=== PATIENT | female | born 1960 | race Hispanic/Latino ===

== ENCOUNTER → 2017-11-24 | Outpatient (CLI) | payer MEDICARE | END | disposition home or self-care (01) | LOC: RAH 07:53 | PROVIDERS: ATTEND Internal Medicine Cardiovascular Disease | DX: K80.20 Calculus of gallbladder without cholecystitis without obstruction (principal); R74.8 Abnormal levels of other serum enzymes | CPT/HCPCS: 76705 ==

== ENCOUNTER → 2018-07-07 | Outpatient (CLI) | payer MEDICARE ==
[~2018-07-07] VITALS: Ht 152.4 cm; Wt 98.0 kg
[~2018-07-07] MED LIST: REGADENOSON 0.4 MG/5 ML PF SYG IVP SCH
== END | disposition home or self-care (01) ==
LOC: SHCH 08:13
PROVIDERS: ATTEND Internal Medicine Cardiovascular Disease
DX: R06.00 Dyspnea, unspecified (principal); I25.10 Atherosclerotic heart disease of native coronary artery without angina pectoris; I10 Essential (primary) hypertension; E11.9 Type 2 diabetes mellitus without complications
CPT/HCPCS: 78452; 93017; 96374; A9500 ×2; J2785

== ENCOUNTER 2020-07-06 11:30 | Emergency (ER) | payer MEDICARE ==
[2020-07-06] MEDS ORDERED: SODIUM CHLORIDE 0.9% 1000ML 1,000 ML IV ONE (11:31)
[2020-07-06 12:10] LABS: BASOPHILS % (AUTO) 0.7 % (0.0-5.0); EOSINOPHILS % (AUTO) 2.9 % (0.0-8.0); HEMATOCRIT 38.8 % (36-48); MEAN CORPUSCULAR HEMOGLOBIN 28.1 pg (27.0-33.0); MEAN CORPUSCULAR HGB CONC 32.7 g/dL (32.0-36.0); MEAN CORPUSCULAR VOLUME 85.8 fL (79-99); MONOCYTES % (AUTO) 5.5 % (3.0-13.0); NEUTROPHILS % (AUTO) 55.7 % (40.0-77.0); PLATELET COUNT (AUTO) 206 K/uL (130-400); RED BLOOD CELL COUNT(AUTO) 4.52 MIL/uL (4.00-5.50); RED CELL DISTRIBUTION WIDTH 13.9 % (11.0-15.5); WHITE BLOOD COUNT (AUTO) 8.9 K/uL (4.8-10.8)
[2020-07-06 12:19] LABS: CREATININE 1.2 mg/dL (0.5-1.5); POTASSIUM 3.8 mmol/L (3.5-5.1)
[2020-07-06 12:23] LABS: ALBUMIN 3.7 g/dL (3.5-5.0); BILIRUBIN,TOTAL 0.7 mg/dL (0.2-1.0); TOTAL PROTEIN, SERUM 7.5 g/dL (6.0-8.3)
[2020-07-06] MEDS ORDERED: ONDANSETRON HCL 4 MG/2 ML VIAL ONE (13:27)
[2020-07-06] MEDS ORDERED: KETOROLAC TROMETHAMINE 30MG/ML ONE (13:27)
[2020-07-06 13:48] LABS: APPEARANCE,URINE Clear (CLEAR); BILIRUBIN,URINE Negative (NEGATIVE); COLOR,URINE Yellow (YELLOW); GLUCOSE, URINE (UA) Negative (NEGATIVE); KETONES,URINE Negative (NEGATIVE); LEUKOCYTE ESTERASE ,URINE Negative (NEGATIVE); NITRATE,URINE Negative (NEGATIVE); OCCULT BLOOD,URINE Negative (NEGATIVE); PROTEIN,URINE Negative (NEGATIVE); UROBILINOGEN,URINE 0.2 mg/dL (0.2-1.0)
== END 2020-07-06 15:18 | disposition home or self-care (01) ==
LOC: EDH 11:30
DX: K59.00 Constipation, unspecified (principal); I10 Essential (primary) hypertension; E11.9 Type 2 diabetes mellitus without complications
CPT/HCPCS: 36415; 74176; 80053; 81003; 83690; 85025; 96374; 96375; 99284; J1885; J2405; J7030

== ENCOUNTER 2022-03-07 13:51 | Emergency (ER) | payer MEDICARE ==
[~2022-03-07] VITALS: Ht 144.8 cm; Wt 83.0 kg
[2022-03-07 14:23] LABS: BASOPHILS % (AUTO) 0.5 % (0.0-5.0); EOSINOPHILS % (AUTO) 3.1 % (0.0-8.0); HEMATOCRIT 35.3 % (36-48); LYMPHOCYTES % (AUTO) 26.1 % (21.0-51.0); MEAN CORPUSCULAR HEMOGLOBIN 29.7 pg (27.0-33.0); MEAN CORPUSCULAR HGB CONC 32.3 g/dL (32.0-36.0); MEAN CORPUSCULAR VOLUME 91.9 fL (79-99); PLATELET COUNT (AUTO) 223 K/uL (130-400); RED BLOOD CELL COUNT(AUTO) 3.84 MIL/uL (4.00-5.50); RED CELL DISTRIBUTION WIDTH 14.5 % (11.0-15.5); WHITE BLOOD COUNT (AUTO) 7.5 K/uL (4.8-10.8)
[2022-03-07 14:52] LABS: ALBUMIN 3.8 g/dL (3.5-5.0); BILIRUBIN,TOTAL 0.7 mg/dL (0.2-1.0); CREATININE 1.3 mg/dL (0.5-1.5); POTASSIUM 4.5 mmol/L (3.5-5.1); TOTAL PROTEIN, SERUM 7.4 g/dL (6.0-8.3)
[2022-03-07] MEDS ORDERED: ACETAMINOPHEN 500 MG TABLET PO ONE (17:00)
[2022-03-07 18:23] VITALS: BP 132/78
== END 2022-03-07 18:25 | disposition home or self-care (01) ==
LOC: EDH 13:51
DX: S20.219A Contusion of unspecified front wall of thorax, initial encounter (principal); I13.10 Hypertensive heart and chronic kidney disease without heart failure, with stage 1 through stage 4 chronic kidney disease, or unspecified chronic kidney disease; E11.22 Type 2 diabetes mellitus with diabetic chronic kidney disease; N18.9 Chronic kidney disease, unspecified; E11.319 Type 2 diabetes mellitus with unspecified diabetic retinopathy without macular edema; Z95.1 Presence of aortocoronary bypass graft; W18.39XA Other fall on same level, initial encounter; Y93.89 Activity, other specified; Y92.89 Other specified places as the place of occurrence of the external cause; Y99.8 Other external cause status
CPT/HCPCS: 36415; 71250; 80053; 85025; 93005

== ENCOUNTER 2022-08-22 16:08 | Emergency (ER) | payer MEDICARE ==
[~2022-08-22] VITALS: Ht 149.9 cm; Wt 84.8 kg
[2022-08-22] MEDS ORDERED: DICYCLOMINE HCL 10 MG/5 ML ML PO ONE (16:30)
[2022-08-22] MEDS ORDERED: FAMOTIDINE 20MG VIAL IV ONE (16:30)
[2022-08-22] MEDS ORDERED: LIDOCAINE HCL 2% VISCOUS 15 ML UDCUP PO ONE (16:30)
[2022-08-22] MEDS ORDERED: MAG/ALUM/SIMETH 30 ML UDCUP PO ONE (16:30)
[2022-08-22] MEDS ORDERED: ONDANSETRON 4MG INJ IVP ONE (16:30)
[2022-08-22 16:43] LABS: BASOPHILS % (AUTO) 0.3 % (0.0-5.0); EOSINOPHILS % (AUTO) 1.1 % (0.0-8.0); HEMATOCRIT 41.3 % (36-48); LYMPHOCYTES % (AUTO) 17.1 % (21.0-51.0); MEAN CORPUSCULAR HEMOGLOBIN 28.2 pg (27.0-33.0); MEAN CORPUSCULAR HGB CONC 32.7 g/dL (32.0-36.0); MEAN CORPUSCULAR VOLUME 86.4 fL (79-99); MONOCYTES % (AUTO) 6.7 % (3.0-13.0); NEUTROPHILS % (AUTO) 74.4 % (40.0-77.0); PLATELET COUNT (AUTO) 222 K/uL (130-400); RED BLOOD CELL COUNT(AUTO) 4.78 MIL/uL (4.00-5.50); RED CELL DISTRIBUTION WIDTH 15.6 % (11.0-15.5); WHITE BLOOD COUNT (AUTO) 7.3 K/uL (4.8-10.8)
[2022-08-22 16:56] LABS: CREATININE 1.4 mg/dL (0.5-1.5); POTASSIUM 3.7 mmol/L (3.5-5.1)
[2022-08-22 17:05] LABS: ALBUMIN 3.7 g/dL (3.5-5.0); TOTAL PROTEIN, SERUM 7.4 g/dL (6.0-8.3)
[2022-08-22] MEDS ORDERED: DICY20TA2 PO (18:00)
[2022-08-22] MEDS ORDERED: FAMO-136 PO (18:00)
[2022-08-22 18:01] VITALS: BP 143/75
== END 2022-08-22 18:14 | disposition home or self-care (01) ==
LOC: EDH 16:08
DX: K29.70 Gastritis, unspecified, without bleeding (principal); I10 Essential (primary) hypertension; G47.30 Sleep apnea, unspecified; Z95.1 Presence of aortocoronary bypass graft
CPT/HCPCS: 99285; 96374; 71045; 96375; 84484; 80053; 83690; 85025; 36415; 93005; J3490; J2405

== ENCOUNTER → 2023-03-31 | Outpatient (CLI) | payer MEDICARE ==
[~2023-03-31] MED LIST changes: +ASPI-1197 PO; +ATOR40TA69 PO; +CHOL100046 PO; +DICY20TA2 PO; +DULA1.5P SQ; +EMPA25TA PO; +FAMO-136 PO; +FOLI0.8T43 PO; +GABA300S3 PO; +LOSA100T59 PO; +METF-445 PO; +METO100T14 PO; -REGADENOSON 0.4 MG/5 ML PF SYG IVP SCH; +TOPI25TA48 PO; +VITA1CAP85 PO
[2023-03-31 12:24] LABS: BASOPHILS % (AUTO) 0.3 % (0.0-5.0); EOSINOPHILS % (AUTO) 3.4 % (0.0-8.0); HEMATOCRIT 34.6 % (36-48); LYMPHOCYTES % (AUTO) 27.6 % (21.0-51.0); MEAN CORPUSCULAR HGB CONC 31.8 g/dL (32.0-36.0); MEAN CORPUSCULAR VOLUME 91.3 fL (79-99); MONOCYTES % (AUTO) 8.7 % (3.0-13.0); NEUTROPHILS % (AUTO) 59.6 % (40.0-77.0); PLATELET COUNT (AUTO) 134 K/uL (130-400); RED BLOOD CELL COUNT(AUTO) 3.79 MIL/uL (4.00-5.50); WHITE BLOOD COUNT (AUTO) 6.7 K/uL (4.8-10.8)
[2023-03-31 12:52] LABS: ALBUMIN 3.2 g/dL (3.5-5.0); CREATININE 1.2 mg/dL (0.5-1.5); POTASSIUM 3.9 mmol/L (3.5-5.1); TOTAL PROTEIN, SERUM 6.8 g/dL (6.0-8.3)
== END | disposition home or self-care (01) ==
LOC: LAB 11:24
PROVIDERS: ATTEND Internal Medicine Cardiovascular Disease
DX: I50.32 Chronic diastolic (congestive) heart failure (principal)
CPT/HCPCS: 36415; 80053; 80061; 85025

== ENCOUNTER → 2023-11-29 | Outpatient (CLI) | payer MEDICARE ==
[2023-11-29 16:14] LABS: BASOPHILS # (AUTO) 0.04 K/uL (0.00-0.20); BASOPHILS % (AUTO) 0.4 % (0.0-5.0); EOSINOPHILS # (AUTO) 0.11 K/uL (0.00-0.70); EOSINOPHILS % (AUTO) 1.2 % (0.0-8.0); HEMATOCRIT 41.1 % (36-48); IMMATURE GRANULOCYTE ABSOLUTE 0.04 K/uL (0-1); LYMPHOCYTES # (AUTO) 1.9 K/uL (1.0-4.8); LYMPHOCYTES % (AUTO) 19.8 % (21.0-51.0); MEAN CORPUSCULAR HEMOGLOBIN 27.9 pg (27.0-33.0); MEAN CORPUSCULAR HGB CONC 30.7 g/dL (32.0-36.0); MEAN CORPUSCULAR VOLUME 90.9 fL (79-99); MONOCYTES # (AUTO) 0.7 K/uL (0.1-1.0); NEUTROPHILS # (AUTO) 6.7 K/uL (1.8-7.7); NEUTROPHILS % (AUTO) 71.2 % (40.0-77.0); PLATELET COUNT (AUTO) 148 K/uL (130-400); RED BLOOD CELL COUNT(AUTO) 4.52 MIL/uL (4.00-5.50); RED CELL DISTRIBUTION WIDTH 15.9 % (11.0-15.5); WHITE BLOOD COUNT (AUTO) 9.4 K/uL (4.8-10.8)
[2023-11-29 16:25] LABS: ALBUMIN 3.3 g/dL (3.5-5.0); BILIRUBIN,TOTAL 0.8 mg/dL (0.2-1.0); CREATININE 1.2 mg/dL (0.5-1.5); POTASSIUM 4.7 mmol/L (3.5-5.1); TOTAL PROTEIN, SERUM 7.1 g/dL (6.0-8.3)
== END | disposition home or self-care (01) ==
LOC: LAB 12:41
PROVIDERS: ATTEND Internal Medicine Cardiovascular Disease
DX: I11.0 Hypertensive heart disease with heart failure (principal); I50.32 Chronic diastolic (congestive) heart failure; E78.2 Mixed hyperlipidemia; I10 Essential (primary) hypertension
CPT/HCPCS: 36415; 80053; 80061; 85025